=== PATIENT | female | born 1975 | race Caucasian/White ===

== ENCOUNTER 2019-12-05 14:22 | Emergency (ER) | payer BC ==
[~2019-12-05] VITALS: Ht 177.8 cm; Wt 75.0 kg
--- NOTE | 2019-12-05 14:49 | NUR ---
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 Pt visibly upset and crying, room locked down, changed into gown, sitting on gurney, belongings (one bag) stored in locker, pt upset regarding removing belongings and ripped off necklace when told it was necessary to remove it. Room secured. sitter request. P/W/D, NAD medically, RESP intact, ABC intact, WCTM.
[2019-12-05 14:59] LABS: BASOPHILS # (AUTO) 0.04 x10^3/uL (0-0.1); BASOPHILS % (AUTO) 1 % (0-1); EOSINOPHILS % (AUTO) 0 % (1-7); LYMPHOCYTES # (AUTO) 1.71 x10^3/uL (1-3.4); LYMPHOCYTES % (AUTO) 22 % (22-44); MD NO; MEAN CORPUSCULAR HEMOGLOBIN 32.8 pg (27.0-34.8); MEAN CORPUSCULAR HGB CONC 34.3 g/dL (32.4-35.8); MEAN CORPUSCULAR VOLUME 95.7 fL (80-100); MEAN PLATELET VOLUME 8.5 fL (7.4-10.4); MONOCYTES # (AUTO) 0.21 x10^3/uL (0.2-0.8); MONOCYTES % (AUTO) 3 % (2-9); NEUTROPHILS # (AUTO) 5.97 x10^3/uL (1.8-6.8); NEUTROPHILS % (AUTO) 75 % (42-75); PLATELET COUNT 198 x10^3/uL (130-400); RED BLOOD COUNT 4.25 x10^6/uL (3.82-5.3); RED CELL DISTRIBUTION WIDTH 13.4 % (9.6-15.2)
--- NOTE | 2019-12-05 14:59 | NUR ---
Geraldine SOLORZANO at bs for eval and to discuss POC
[2019-12-05 15:12] LABS: ALANINE AMINOTRANSFERASE 22 U/L (12-78); ALBUMIN 3.8 g/dL (3.4-5.0); ANION GAP 7 mmol/L (5-15); CALCIUM 8.7 mg/dL (8.5-10.1); CHLORIDE 113 mmol/L (98-107); CREATININE 0.75 mg/dL (0.55-1.02); SALICYLATE LEVEL 2.6 mg/dL (2.8-20.0)
--- NOTE | 2019-12-05 15:15 | NUR ---
Geraldine SOLORZANO at for eval. NAD, RESP WNL, WCTM.
[2019-12-05 15:17] LABS: ALKALINE PHOSPHATASE 51 U/L (45-117); BILIRUBIN,TOTAL 0.4 mg/dL (0.2-1.0); TOTAL PROTEIN 6.9 g/dL (6.4-8.2)
--- NOTE | 2019-12-05 16:22 | NUR ---
Geraldine SOLORZANO stated pt ok to be DC'd. Pt given crackers while waiting for DC paperwork, Sitter at BS, NAD, P/W/D, RESP WNL, WCTM.
[2019-12-05] MEDS ORDERED: ONDANSETRON ODT 8 MG ONE (17:21)
--- NOTE | 2019-12-05 17:22 | NUR ---
pt radha anton MD notified, pt medicated per OCT. RESP WNL, ABC INTACT, Pt denies additional needs, sitter in [place], WCTM.
[2019-12-05] MEDS ORDERED: ONDANSETRON ODT 8 MG PO ONE (17:30)
[2019-12-05 17:38] VITALS: BP 114/64
--- NOTE | 2019-12-05 17:39 | NUR ---
pt given DC instructions, verbalized understanding, denies additional needs, ride called, changing into clothes, given belongs, VSS, P/W/D. WCTM until pt ambulated out of ER
--- NOTE | 2019-12-05 17:59 | NUR ---
pt ambulated out of ER with a smooth and steady gait.
== END 2019-12-05 18:00 ==
LOC: ED 16:46
DX: F43.24 Adjustment disorder with disturbance of conduct (principal); R45.851 Suicidal ideations; F32.9 Major depressive disorder, single episode, unspecified; R94.31 Abnormal electrocardiogram [ECG] [EKG]; F10.129 Alcohol abuse with intoxication, unspecified; Y90.9 Presence of alcohol in blood, level not specified
CPT/HCPCS: 36415; 80053; 80307; 84443; 84703; 85025; 93005; 99284; Q0162